=== PATIENT | male | born 1980 | race Two or more races ===

== ENCOUNTER 2021-01-14 01:11 | Emergency (ER) | payer OTHER ==
[~2021-01-14] VITALS: Ht 172.7 cm; Wt 88.5 kg
[~2021-01-14 01:11] MED LIST: IBUPROFEN25 GM MC
[2021-01-14] MEDS ORDERED: VISTARIL50 MG PO (04:25)
== END 2021-01-14 04:38 | disposition home or self-care (01) ==
LOC: ER 01:11
DX: R20.2 Paresthesia of skin (principal); R00.2 Palpitations

== ENCOUNTER 2022-07-19 08:23 | Emergency (ER) | payer OTHER ==
[~2022-07-19] VITALS: Ht 175.3 cm; Wt 79.4 kg
[~2022-07-19 08:23] MED LIST changes: +VISTARIL50 MG PO
== END 2022-07-19 12:47 | disposition home or self-care (01) ==
LOC: ER 08:23
DX: S99.812A Other specified injuries of left ankle, initial encounter (principal); X50.1XXA Overexertion from prolonged static or awkward postures, initial encounter; Y93.67 Activity, basketball; Y92.9 Unspecified place or not applicable; Y99.9 Unspecified external cause status; Z88.6 Allergy status to analgesic agent

== ENCOUNTER 2024-04-02 08:13 | Emergency (ER) | payer OTHER ==
[~2024-04-02] VITALS: Ht 175.3 cm; Wt 79.4 kg
[2024-04-02] MEDS ORDERED: CEFTRIAXONE SODIUM 1,000 MG VIAL IM STA (09:07)
[2024-04-02] MEDS ORDERED: CEFTRIAXONE SODIUM 1,000 MG VIAL ONE (09:16)
[2024-04-02 09:37] LABS: HEMATOCRIT 38.6 % (39.0-48.0); HEMOGLOBIN 12.9 g/dL (13-16.00); MEAN CELL VOLUME 80.9 fL (80.0-100.00); MEAN CORPUSCULAR HGB CONC 33.4 g/dl (32.0-36.0); PLATELET COUNT 265 K/uL (150-450); RED BLOOD COUNT 4.77 M/uL (4.00-6.00); RED CELL DISTRIBUTION WIDTH 13.1 % (11.5-14.5)
== END 2024-04-02 13:34 | disposition home or self-care (01) ==
LOC: ER 08:15
PROVIDERS: General Practice
DX: R53.81 Other malaise (principal); R05.9 Cough, unspecified; Z88.6 Allergy status to analgesic agent